=== PATIENT | female | born 1955 | race Two or more races ===

== ENCOUNTER 2019-12-03 15:44 | Emergency (ER) | payer MEDICARE, OTHER ==
[~2019-12-03] VITALS: Ht 154.9 cm; Wt 74.8 kg
[2019-12-03 15:56] VITALS: BP 118/90
--- NOTE | 2019-12-03 16:06 | NUR ---
AMBULATORY TO & FROM [facility] W/OUT INCIDENT. NO URINE SPECIMEN PROVIDED. RADHA HERNANDEZ AT BS FOR EXAM
--- NOTE | 2019-12-03 16:06 | NUR ---
GRANDDAUGHTER IN ROOM ASSISTING W/ HX. PT REPORTS SUDDEN DIFFICULTY SWALLOWING X 1 WEEK. DENIES COUGH, FEVER. PT ABLE TO SPEAK; NO RESP DISTRESS, CONSTANTLY CLEARING HER THROAT. C/O PAIN TO LT SIDE OF THROAT.
[2019-12-03] MEDS ORDERED: LISI1TAB39 PO (16:16)
[2019-12-03] MEDS ORDERED: ROSU40TA PO (16:16)
[2019-12-03] MEDS ORDERED: BENZOCAINE AEROSOL SPRAY 20%, 60ML ONE (16:24)
[2019-12-03] MEDS ORDERED: DEXAMETHASONE 4 MG TABLET ONE (16:24)
[2019-12-03] MEDS ORDERED: LIDOCAINE-MPF 1%, 2ML ONE (16:24)
[2019-12-03] MEDS ORDERED: BENZOCAINE AEROSOL SPRAY 20%, 60ML TP ONE (16:30)
[2019-12-03] MEDS ORDERED: LIDOCAINE 1%, 10ML INFIL ONE (16:30)
[2019-12-03] MEDS ORDERED: DEXAMETHASONE 4 MG TABLET PO ONE (16:30)
--- NOTE | 2019-12-03 16:57 | NUR ---
PT REPORT TO BREAK RN. PT CARE TRANSFERRED.
[2019-12-03] MEDS ORDERED: BICILLIN-LA 1,200,000 UNITS/2 ML IM ONE (17:00)
== END 2019-12-03 17:14 | disposition home or self-care (01) ==
LOC: ED 16:28
DX: J36 Peritonsillar abscess (principal); I10 Essential (primary) hypertension
CPT/HCPCS: 96372; 99283; J0561; J3490

== ENCOUNTER 2019-12-12 13:48 | Emergency (ER) | payer MEDICARE ==
[~2019-12-12] VITALS: Ht 154.9 cm; Wt 76.2 kg
[~2019-12-12 13:48] MED LIST: LISI1TAB39 PO; ROSU40TA PO
[2019-12-12 14:37] LABS: BASOPHILS % (AUTO) 1 % (0-1); EOSINOPHILS % (AUTO) 2 % (1-7); LYMPHOCYTES % (AUTO) 26 % (22-44); MEAN CORPUSCULAR HEMOGLOBIN 29.7 pg (27.0-34.8); MEAN CORPUSCULAR HGB CONC 33.8 g/dL (32.4-35.8); MEAN PLATELET VOLUME 7.5 fL (7.4-10.4); MONOCYTES % (AUTO) 8 % (2-9); NEUTROPHILS % (AUTO) 63 % (42-75); PLATELET COUNT 410 x10^3/uL (130-400); RED BLOOD COUNT 4.69 x10^6/uL (3.82-5.3); RED CELL DISTRIBUTION WIDTH 13.6 % (9.6-15.2)
[2019-12-12 14:39] LABS: MD NO
--- NOTE | 2019-12-12 14:47 | NUR ---
CHILD PROTECTIVE SERVICES SPECIALIST: PT TO ROOM FROM GINETTE VELASQUEZ
[2019-12-12 14:48] LABS: ALANINE AMINOTRANSFERASE 32 U/L (12-78); ALBUMIN 3.4 g/dL (3.4-5.0); ANION GAP 5 mmol/L (5-15); CALCIUM 9.6 mg/dL (8.5-10.1); CHLORIDE 110 mmol/L (98-107); CREATININE 1.25 mg/dL (0.55-1.02)
[2019-12-12 14:49] LABS: ALKALINE PHOSPHATASE 102 U/L (45-117); BILIRUBIN,TOTAL 0.5 mg/dL (0.2-1.0); TOTAL PROTEIN 7.8 g/dL (6.4-8.2)
--- NOTE | 2019-12-12 15:05 | NUR ---
SITTING UP ON GUMANUEL, Malathi&OX4, RESP EVEN & UNLABORED, SPEECH, SKIN WNL.
--- NOTE | 2019-12-12 15:36 | NUR ---
PT STATES SHE PASSED OUT A WEEK AGO SUNDAY. CURRENTLY, C/O "HARD TO BREATHE DEEPLY" X 2 DAYS, WORSE LAST NOC. DENIES LUNG AND CARDIAC HX. C/O PAIN UNDER RT BREAST, NAUSEA, DIZZINESS W/ TURNING HEAD OR BENDING. TOOK TYLENOL TODAY. PT'S SON IN ROOM
--- NOTE | 2019-12-12 16:20 | NUR ---
PT REPORT TO ALLEN SUE. PT CARE TRANSFERRED. PT AWAITING CT
--- NOTE | 2019-12-12 16:30 | NUR ---
RECEIVED REPORT FROM INNA VILLA. CARE ASSUMED. FAMILY AT BEDSIDE. PT RESTING COMFORTABLY. DENIES ANY PAIN AND NEED TO USE RESTROOM "I'M COMFORTABLE, ONLY PAIN IF I HAVE TO MOVE A LOT." REFUSES NEED FOR PAIN MEDICATION. VSS. CALL LIGHT IN REACH. FALL PRECUATIONS IN PLACE. PT AWAITING CT, CT CALLED, PT TO BE TAKEN SHORTLY PER CT STAFF. A&OX4.
--- NOTE | 2019-12-12 16:35 | NUR ---
PT TO CT AT THIS TIME.
[2019-12-12] MEDS ORDERED: OMNIPAQUE 350 MG/ML, 75ML BOTTLE ONE (16:45)
--- NOTE | 2019-12-12 16:50 | NUR ---
PT BACK FROM CT. NAD NOTED. RESP REGULAR AND UNLABORED. VSS. FAMILY AT BEDSIDE. AWAITING RESULTS.
--- NOTE | 2019-12-12 17:30 | NUR ---
DR. HERNANDEZ AT BEDSIDE DISCUSSING TEST RESULTS AND DISCHARGE POC, AWAITING CHART AND DISCHARGE PAPERS FROM [facility].
--- NOTE | 2019-12-12 18:00 | NUR ---
GELA VILLA AT BEDSIDE TO ASSIST WITH PT DISCHARGE.
[2019-12-12 18:09] VITALS: BP 105/66
--- NOTE | 2019-12-12 18:10 | NUR ---
Patient/Caregiver given discharge instructions and they have confirmed that they understand the instructions. Patient ambulatory with steady gait.
== END 2019-12-12 18:12 | disposition home or self-care (01) ==
LOC: ED 15:01
DX: R07.89 Other chest pain (principal); R55 Syncope and collapse; E78.5 Hyperlipidemia, unspecified; I10 Essential (primary) hypertension
CPT/HCPCS: 36415; 71046; 71275; 80053; 85025; 93005; 99285; Q9967